=== PATIENT | female | born 2000 | race Hispanic/Latino ===

== ENCOUNTER 2024-02-08 12:50 | Emergency (ER) | payer SELFPAY ==
[2024-02-08] MEDS ORDERED: Ondansetron PF 4 MG/2 ML Vial ONE (13:27)
[2024-02-08] MEDS ORDERED: Sodium Chloride 0.9% 1,000 ML ONE (13:27)
[2024-02-08 13:29] LABS: #Basophils 0.1 thou/uL (0.0-0.2); #Eosinophils 0.1 thou/uL (0.0-0.7); #Lymphocytes 1.8 thou/uL (1.20-3.40); #Monocytes 0.6 thou/uL (0.11-0.59); #Neutrophils 7.6 thou/uL (1.40-6.50); %Basophils 0.8 % (0.0-1.0); %Eosinophils 0.5 % (0.0-10.0); %Lymphocytes 17.3 % (21.0-51.0); %Neutrophils 75.4 % (42.0-75.0); Hematocrit 40.9 % (36.0-47.0); Hemoglobin 13.5 g/dL (12.0-16.0); Mean Corpuscular HGB CONC 33.1 g/dL (32.0-36.0); Mean Corpuscular Volume 84.7 fl (78.0-98.0); Platelet Count 335 10x3/uL (130-400); RBC Distribution Width 11.7 % (11.5-14.5); Red Blood Cell (RBC) Count 4.83 mill/uL (4.20-5.40); White Blood Cell (WBC) Count 10.1 10x3/uL (4.8-10.8)
[2024-02-08 13:39] LABS: BHCG - Serum Negative (NEGATIVE); Pregs Control Bar Appear? YES (CONTROL BAR)
[2024-02-08 13:45] LABS: ALT (SGPT) 19 U/L (8-55); AST (SGOT) 12 U/L (5-34); Albumin 4.5 g/dL (3.5-5.0); Alkaline Phosphatase 74 U/L (40-110); Anion Gap 17 mmol/L (10-20); BUN (Urea Nitrogen) 10 mg/dL (7.0-18.7); Bilirubin, Total 0.4 mg/dL (0.2-1.2); Calc. Creatinine Clearance 0 mL/min (70-130); Carbon Dioxide 20 mmol/L (22-29); Chloride 106 mmol/L (98-107); Estimated GFR 108; Globulin 3.6 g/dL (2.4-3.5); Glucose 97 mg/dL (70-105); Potassium 3.6 mmol/L (3.5-5.1); Protein, Total 8.1 g/dL (6.0-8.3); Sodium 139 mmol/L (136-145)
== END 2024-02-08 14:35 | disposition home or self-care (01) ==
LOC: NAV ERS 12:50
DX: F41.9 Anxiety disorder, unspecified (principal); R11.0 Nausea; R06.02 Shortness of breath
CPT/HCPCS: 80053; 84703; 85025; 96361; 96374; J2405; J7030